=== PATIENT | female | born 1975 | race Caucasian/White ===

== ENCOUNTER 2017-05-21 07:52 | Emergency (ER) | payer MEDICAID ==
[2017-05-21 07:59] VITALS: BP 136/90
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
--- NOTE | 2017-05-21 08:54 | XRAY Report ---
EXAM: RIGHT HUMERUS RADIOGRAPHY EXAM DATE: 05/21/2017 08:33 AM. CLINICAL HISTORY: Right upper arm injury. Fell, landing on right arm. COMPARISON: None. TECHNIQUE: 2 views. FINDINGS: Bones: There is a minimally displaced comminuted fracture of the greater tuberosity of the humerus. T he remainder of the visualized bones appear intact. Joints: Normal. No effusions or subluxations in the visualized shoulder or elbow joints. Soft Tissues: There is soft tissue swelling adjacent to the proximal humerus. IMPRESSION: Acute minimally displaced comminuted fracture of the greater tuberosity of the humerus. [facility] Referring Provider Line: [phone] SITE ID: [id number]
--- NOTE | 2017-05-21 08:54 | XRAY Preliminary Report ---
Exam: XR HUMERUS RT IMPRESSION: Acute minimally displaced comminuted fracture of the greater tuberosity of the humerus. [facility] SITE ID: [id number]
== END 2017-05-21 09:53 | disposition home or self-care (01) ==
LOC: ED 07:52
DX: S42.251A Displaced fracture of greater tuberosity of right humerus, initial encounter for closed fracture (principal); W18.09XA Striking against other object with subsequent fall, initial encounter; Y92.039 Unspecified place in apartment as the place of occurrence of the external cause; F17.200 Nicotine dependence, unspecified, uncomplicated
CPT/HCPCS: 99283